=== PATIENT | female | born 1985 | race Caucasian/White ===

== ENCOUNTER 2025-02-15 06:40 | Observation (INO) | payer BC, SELFPAY ==
[2025-02-15 06:56] VITALS: BMI 42.8
[2025-02-15 06:59] LABS: Hematocrit 29.6 % (37.0-47.0); Hemoglobin 9.7 g/dL (12.0-16.0); Mean Corp Hgb Conc. 32.8 g/dL (33.0-37.0); Mean Corpuscular Hgb 29.4 pg (27.0-31.0); Mean Corpuscular Volume 89.7 fL (81.0-99.0); Mean Platelet Volume 9.6 fL (7.4-10.4); Platelet Count 159 10^3/uL (130-400); White Blood Cell Count 9.5 10^3/uL (4.8-10.8)
[2025-02-15 07:16] LABS: INR 0.91; PT 12.6 Sec (11.4-14.6)
[2025-02-15 07:17] LABS: APTT 27.4 Sec (23.4-35.0); Fibrinogen 508 MG/DL (199-459)
== END 2025-02-15 09:51 | disposition home or self-care (01) ==
LOC: LDRP 06:40
PROVIDERS: ADMITTING PHYSICIAN Student in an Organized Health Care Education/Training Program
DX: O46.8X3 Other antepartum hemorrhage, third trimester (principal); Z3A.32 32 weeks gestation of pregnancy
CPT/HCPCS: 85027; 85384; 85460; 85610; 85730; 86850; 86900; 86901; G0378

== ENCOUNTER 2025-03-31 18:00 | Emergency (ER) | payer BC, OTHER, SELFPAY ==
[2025-03-31] VITALS (10 sets, daily range): BP systolic 124–164; BP diastolic 66–99; BMI 42.6
--- NOTE | 2025-03-31 18:33 | ED.GENMED ---
History of Present Illness
General
Chief Complaint: Swelling
Source: patient
Exam Limitations: none
Time Seen by Provider: 03/31/25 18:23
History of Present Illness
History of Present Illness:
39yoF who is currently 13 days presenting with her for evaluation of leg swelling. Patient had a performed at [facility]) on 03/18/25 at 37 weeks gestation. There was no reported complications from the delivery. She
developed bilateral leg swelling immediately after the section which she also experienced with her prior . The leg swelling has not gone away and seems to be worsening slightly. She had a bad headache 3 days ago which has since
resolved. She also reports fatigue but has not been sleeping well. She called her OBGYN office this afternoon and was advised to check her blood pressure. Her blood pressure was 166/99 on multiple rechecks and she was told to go to the ED for
evaluation. She currently denies any headache, visual changes, chest pain, shortness of breath. She denies any history of preeclampsia or hypertension during her . Patient is currently .
Phy Exam
General Physical Exam
General Presentation: well appearing and no apparent distress
General age: appears stated age
General Skin: warm and dry
General Habitus: normal
General Mental: alert
ENT Exam
ENT Exam: normocephalic
Cardiovascular Exam
Cardiovascular Exam: regular rate/rhythm, no murmur and other (Non-pitting edema noted to bilateral lower legs)
Pulmonary Exam
Pulmonary Exam: lungs clear, no respiratory distress, no rales, no crackles, no rhonchi and no wheezing
Neurological Exam
Neurological Exam: alert
[place] Coma Scale
Eye Opening: Spontaneous
Verbal Response: Oriented
Motor Response: Obeys Commands
GCS Total Score: 15
Skin Exam
Skin Exam: normal color and warm/dry
Psychiatric Exam
Psychiatric Exam: normal mood/affect
Course
Orders/Labs/Results
Orders:
Orders
03/31/25 18:32
Cardiac Monitoring- Treatment ONCE
03/31/25 18:52
Complete Blood Count/With Diff Urgent
03/31/25 18:53
Urinalysis Reflex To Culture Urgent
Date Specimen was Collected: 03/31/25
Time Specimen was Collected: 18:34
Urine Microscopic Reflex Cult Urgent
Urine Culture Urgent
CASTILLO Source: U
Specimen Description:
Date Specimen was Collected: 03/31/25
Time Specimen was Collected: 18:34
03/31/25 18:58
Urine Protein/Creat Ratio (Random) [Protein/Creat Ratio (Random)] Urgent
Date Specimen was Collected: 03/31/25
Time Specimen was Collected: 18:56
03/31/25 19:32
Comprehensive Metabolic Panel Urgent
03/31/25 19:47
Venous Doppler Lwr Ext Bilat [US Periph Venous LOWER Ext Tyson] Urgent
Comment:
Reason For Exam: bilateral leg swelling
03/31/25 21:16
Amlodipine [Norvasc] 5 mg PO ONCE ONE
Abnormal Lab Results
03/31/25 03/31/25 03/31/25
18:52 18:53 19:32
RBC 3.49 L 10^6/uL
(4.20-5.40)
Hgb 10.1 L g/dL
(12.0-16.0)
Hct 30.2 L %
(37.0-47.0)
Chloride 111 H mmol/L
(98-107)
BUN 22 H mg/dl
(7-17)
Calcium 7.9 L mg/dl
(8.4-10.2)
Total Protein 5.6 L g/dl
(6.3-8.2)
Albumin 3.2 L g/dl
(3.5-5.0)
Ur Occult Blood Reflex 4+ A
(Negative)
Leukocyte Esterase Rfl 1+ A
(Negative)
Urine RBC 7-10 A /HPF
(0-2)
Urine Bacteria (Reflex) Few A
(Negative)
03/31/25 18:52
03/31/25 19:32
Vital Signs
Initial and Last Documented VS:
Initial Vital Signs
Temp Pulse Resp BP Pulse Ox
98.2 F 75 20 164/99 94
03/31/25 18:03 03/31/25 18:03 03/31/25 18:03 03/31/25 18:03 03/31/25 18:03
Last Documented Vital Signs
Temp Pulse Resp BP Pulse Ox
98.2 F 75 18 141/84 96
03/31/25 18:03 03/31/25 21:15 03/31/25 21:15 03/31/25 21:54 03/31/25 21:15
MDM/Problems Addressed
Differential Diagnosis Includes:
39yoF here with bilateral leg swelling and elevated BP. About 2 weeks . Also had a headache a few days ago but none currently. BP 164/99 on arrival. BP 143/76 after initial evaluation. Patient is well-appearing in no distress. Lungs
clear to auscultation without rales. There is nonpitting edema to bilateral lower extremities. Differential diagnosis includes but is not limited to: Preeclampsia, hypertension in the period, DVT
Initial ED plan: Will check CBC, CMP, UA, urine protein to creatinine ratio, and bilateral venous duplex.
*Critical Care Note
Total Time (30-74mins, 75-104mins- exclusive of procedures): Not Applicable
Update Note
Update Note:
Platelets, creatinine, and LFTs all normal. The urine dip is negative for protein although the protein to creatinine ratio is elevated at 0.6. Venous duplex negative for DVT. Blood pressure remains in the 140s/80s-90s range on multiple rechecks.
Case was initially discussed with director of instructional technology OBGYN, Dr. Cochran, who subsequently advised discussion with patient's primary OBGYN team at [facility]. I was able to discuss labs/case with Dr. Olga Angel, director of instructional technology traffic enumerator at [facility], via phone. Per
Dr. Angel, patient may be discharged with a prescription for amlodipine 5mg daily. No indication for magnesium as this time. The office will call patient tomorrow to arrange close f/u. Strict ED return precautions discussed including headache,
new vision changes, SOB. Patient in agreement with plan and she was discharged in stable condition.
ED Attending Note
-
Portions of this chart may have been created with voice recognition software.� Occasional wrong word or��sound alike� substitutions may have occurred due to the inherent limitations of voice recognition software.
Discharge Plan
Departure
Patient Disposition: Home (Routine Discharge)
Date of Disposition: 03/31/25
Time of Disposition: 21:53
Patient with high blood pressure during this ER visit?: Yes
Discharge Problem:
Hypertension, condition or complication
Instructions: High blood pressure and , Amlodipine
Prescriptions:
New
amlodipine 5 mg tablet
5 mg PO DAILY Qty: 14 0RF
No Action
aspirin 81 mg Capsule
81 mg PO DAILY
[id number] 1 mg Tablet
1 tab PO DAILY
docusate sodium 50 mg Capsule
50 mg PO DAILY
ferrous sulfate [Iron (ferrous sulfate)] 325 mg (65 mg iron) Tablet
1 mg PO DAILY
Referrals:
Parisa Whitney CRNP [Family Provider] -
Activity Restrictions/Additional Instructions:
Take amlodipine as prescribed and monitor blood pressure at home.
Your CLIENT LIAISON office will reach out to you tomorrow for close follow-up. Return to the ER immediately with any worsening symptoms including headache, changes in your vision, or trouble breathing.
Interventions
Interventions:
*Risk Screen - Suicide Last Done: 03/31/25 18:45
*General Assessment Last Done: 03/31/25 18:03
*Neglect/Abuse Screening Last Done: 03/31/25 18:40
*ED- Fall Risk Assessment Last Done: 03/31/25 18:45
*ED COVID-19 Vaccine History Last Done: 03/31/25 18:45
*Nursing Disposition Last Done: 03/31/25 22:01
ED- Cardiac Assessment Last Done: 03/31/25 18:59
ED- Pulmonary Assessment Last Done: 03/31/25 18:59
ED-Skin Assessment Last Done: 03/31/25 18:59
Discharge Date and Time
Discharge Date/Time: 03/31/25 22:02
Print Language: FIJIAN
[2025-03-31 19:12] LABS: Urine Albumin Negative (Neg - Trace); Urine Bilirubin Negative (Negative); Urine Character Clear (Clear); Urine Color Yellow; Urine Glucose Negative (Negative); Urine Ketone Negative (Negative); Urine Leukocyte 1+ (Negative); Urine Nitrite Negative (Negative); Urine Occult Blood 4+ (Negative); Urine Urobilinogen Negative (Neg - 1+); Urine pH 6.5 (5.0-9.0)
[2025-03-31 19:19] LABS: Urine Squamous Cell 0-2 /LPF (Few)
[2025-03-31 19:20] LABS: Urine Bacteria Few (Negative)
[2025-03-31 19:36] LABS: % Basophils 0.5 % (0-2); % Eosinophils 4.9 % (0-6); % Immature Granulocytes 0.4 % (0-0.5); % Lymphocytes 25.1 % (20.5-51.1); % Neutrophils 63.1 % (42.2-75.2); Absolute Basophils 0.1 10^3/uL (0-0.2); Absolute Eosinophils 0.5 10^3/uL (0-0.7); Absolute Lymphocytes 2.6 10^3/uL (1.2-3.4); Absolute Monocytes 0.6 10^3/uL (0.1-0.6); Absolute Neutrophils 6.5 10^3/uL (1.4-6.5); Hematocrit 30.2 % (37.0-47.0); Hemoglobin 10.1 g/dL (12.0-16.0); Mean Corp Hgb Conc. 33.4 g/dL (33.0-37.0); Mean Corpuscular Hgb 28.9 pg (27.0-31.0); Mean Corpuscular Volume 86.5 fL (81.0-99.0); Mean Platelet Volume 9.3 fL (7.4-10.4); Nucleated Red Blood Cells % 0 %; Platelet Count 334 10^3/uL (130-400); Red Blood Cell Count 3.49 10^6/uL (4.20-5.40); Red Cell Dist. Width 13.2 % (11.5-14.5); White Blood Cell Count 10.3 10^3/uL (4.8-10.8)
[2025-03-31 19:39] LABS: Protein/creatinine Ratio 0.6; Urine Protein 15 mg/dl
[2025-03-31 19:56] LABS: ALT (SGPT) 26 U/L (0-35); AST (SGOT) 15 U/L (14-36); Albumin 3.2 g/dl (3.5-5.0); Alkaline Phosphatase 74 U/L (38-126); Blood Urea Nitrogen 22 mg/dl (7-17); Calcium 7.9 mg/dl (8.4-10.2); Carbon Dioxide 22 mmol/L (22-30); Chloride 111 mmol/L (98-107); Estimated Creatinine Clearance > 125 ml/min; Glucose 86 mg/dl (70-99); Potassium 3.9 mmol/L (3.5-5.1); Sodium 139 mmol/L (135-145); Total Bilirubin 0.5 mg/dl (0.2-1.3); Total Protein 5.6 g/dl (6.3-8.2); eGFR > 60.00
[2025-03-31] MEDS: NORVASC 5 MG PO (21:26)
== END 2025-03-31 22:02 | disposition home or self-care (01) ==
LOC: EMR 18:00
PROVIDERS: Physician Assistant; EMERGENCY PHYSICIAN Student in an Organized Health Care Education/Training Program; FAMILY PHYSICIAN Nurse Practitioner Family; REFERRING PHYSICIAN Obstetrics & Gynecology
DX: O16.5 Unspecified maternal hypertension, complicating the puerperium (principal); O90.89 Other complications of the puerperium, not elsewhere classified; R22.43 Localized swelling, mass and lump, lower limb, bilateral
CPT/HCPCS: 99284; 80053; 81003; 81015; 82570; 84156; 85025; 87086; 93970